=== PATIENT | male | born 1985 | race Caucasian/White ===

== ENCOUNTER 2020-12-12 14:54 | Day surgery (SDCO) | payer OTHER ==
[2020-12-12 16:13] LABS: BASOPHIL 0.8 % (0-2); EOSINOPHIL 4.4 % (0-5); HCT 46.4 % (42.0-52.0); HGB 16.2 g/dl (13.2-18.0); LYMPHOCYTE 39.9 % (15-48); MCH 30.7 pg (25.0-31.0); MCHC 34.9 g/dL (32.0-36.0); MONOCYTE 5.5 % (0-12); MPV 10.7 fL (6.0-9.5); NEUTROPHIL 49.2 % (41-80); NRBC 0; PLT 215 K/uL (150-400); RBC 5.27 M/uL (4.70-6.00); RDW 12.3 % (11.5-14.0); WBC 6.3 K/uL (4.0-10.5)
[2020-12-12 16:15] LABS: BILIRUBIN NEGATIVE (NEGATIVE); BLOOD NEGATIVE Ery/uL (NEGATIVE); CLARITY CLEAR (CLEAR); COLOR YELLOW (YELLOW); GLUCOSE (U) NORMAL (NORMAL); LEUKOCYTES NEGATIVE Leu/uL (NEGATIVE); NITRITE NEGATIVE (NEGATIVE); PROTEIN NEGATIVE (NEGATIVE); UROBILINOGEN 0.2 mg/dL (0.2-1.0)
[2020-12-12 16:28] LABS: ALBUMIN 4.2 g/dL (3.4-5.0); BILIRUBIN - TOTAL 0.5 mg/dL (0.2-1.0); BUN/CREAT RATIO (CALC) 10.8 RATIO; CREATININE 0.93 mg/dL (0.67-1.17); GLOBULIN (CALCULATION) 3.8 g/dL; POTASSIUM 4.8 mmol/L (3.5-5.1)
[2020-12-13 05:09] LABS: BASOPHIL 0.5 % (0-2); EOSINOPHIL 6.7 % (0-5); HCT 44.8 % (42.0-52.0); HGB 15.3 g/dl (13.2-18.0); LYMPHOCYTE 48.2 % (15-48); MCH 30.3 pg (25.0-31.0); MCHC 34.2 g/dL (32.0-36.0); MCV 88.7 fL (78.0-100.0); MONOCYTE 6.7 % (0-12); NEUTROPHIL 37.8 % (41-80); NRBC 0; PLT 207 K/uL (150-400); RBC 5.05 M/uL (4.70-6.00); RDW 12.5 % (11.5-14.0); WBC 7.5 K/uL (4.0-10.5)
[2020-12-13 05:31] LABS: CREATININE 0.94 mg/dL (0.67-1.17); POTASSIUM 4.2 mmol/L (3.5-5.1)
[2021-01-10] MEDS ORDERED: VISTARIL25 MG PO (07:18)
== END 2020-12-13 18:10 | disposition home or self-care (01) ==
LOC: FER 14:54 → FMS 18:23
PROVIDERS: Emergency Medicine; Nurse Practitioner; ADMIT Internal Medicine
DX: K40.30 Unilateral inguinal hernia, with obstruction, without gangrene, not specified as recurrent (principal); U07.1 COVID-19; F17.210 Nicotine dependence, cigarettes, uncomplicated; Z71.6 Tobacco abuse counseling; Z71.89 Other specified counseling; Z87.898 Personal history of other specified conditions; Z86.19 Personal history of other infectious and parasitic diseases; Z20.822 Contact with and (suspected) exposure to COVID-19
CPT/HCPCS: 36415; 80048; 80053; 81003; 83605; 83690; 84145; 85025; G0378; J1885; J2405; J7030; Q9967; U0002

== ENCOUNTER → 2021-01-10 | Day surgery (SDC) | payer OTHER ==
[~2021-01-10] MED LIST: VISTARIL25 MG PO
== END | disposition home or self-care (01) ==
LOC: FAS 07:04
DX: K40.90 Unilateral inguinal hernia, without obstruction or gangrene, not specified as recurrent (principal); F90.9 Attention-deficit hyperactivity disorder, unspecified type; F31.9 Bipolar disorder, unspecified; F17.210 Nicotine dependence, cigarettes, uncomplicated
CPT/HCPCS: C1781; J0690; J1100; J1170; J1885; J2250; J2405; J2704; J3475; J7120

== ENCOUNTER 2021-01-11 10:09 | Emergency (ER) | payer OTHER | END 2021-01-11 11:25 | disposition home or self-care (01) | LOC: FER 10:09 | DX: L76.32 Postprocedural hematoma of skin and subcutaneous tissue following other procedure (principal); Z98.890 Other specified postprocedural states; Y83.8 Other surgical procedures as the cause of abnormal reaction of the patient, or of later complication, without mention of misadventure at the time of the procedure | CPT/HCPCS: 99283 ==

== ENCOUNTER 2021-01-20 22:20 | Emergency (ER) | payer OTHER ==
[2021-01-20 23:48] LABS: BASOPHIL 0.6 % (0-2); EOSINOPHIL 5.4 % (0-5); HCT 42.1 % (42.0-52.0); HGB 14.5 g/dl (13.2-18.0); LYMPHOCYTE 36.6 % (15-48); MCH 30.9 pg (25.0-31.0); MCHC 34.4 g/dL (32.0-36.0); MCV 89.6 fL (78.0-100.0); MONOCYTE 6.7 % (0-12); NEUTROPHIL 50.5 % (41-80); NRBC 0; PLT 233 K/uL (150-400); WBC 8.6 K/uL (4.0-10.5)
== END 2021-01-21 00:40 | disposition home or self-care (01) ==
LOC: FER 22:20
PROVIDERS: Emergency Medicine
DX: L76.32 Postprocedural hematoma of skin and subcutaneous tissue following other procedure (principal); F17.210 Nicotine dependence, cigarettes, uncomplicated; Z98.890 Other specified postprocedural states; Y83.8 Other surgical procedures as the cause of abnormal reaction of the patient, or of later complication, without mention of misadventure at the time of the procedure
CPT/HCPCS: 36415; 85025; 99283